=== PATIENT | female | born 1990 | race Hispanic/Latino ===

== ENCOUNTER 2021-03-06 19:39 | Emergency (ER) | payer MEDICAID ==
[2021-03-06 20:59] LABS: Urine Blood 2+ (Negative); Urine Glucose Negative (Negative); Urine Protein Negative (Negative); Urine pH 5.5 (5.0-7.0)
[2021-03-06 21:06] LABS: Basophils % 0.4 % (0-1.3); Hematocrit 37.9 % (36.0-45.0); Lymphocytes % 17.4 % (15.3-44.8); MPV 7.6 fL (7.6-11.3); RBC Red Blood Cell Count 4.46 M/uL (3.86-4.86)
[2021-03-06 21:37] LABS: BUN Blood Urea Nitrogen 8 mg/dL (7-18); Bicarbonate 25 mmol/L (21-32); Glucose Level 82 mg/dL (74-106); HCG, Quantitative 22084 mIU/mL (1-3); Potassium 3.6 mmol/L (3.5-5.1); Sodium Level 139 mmol/L (136-145)
--- NOTE | 2021-03-06 22:58 | ER ---
Nurse's Notes [facility] Name: Mayi Serrano Age: 30 yrs Sex: Female : 1990 Arrival Date: 03/06/2021 Time: 19:42 Bed 18 Private MD: Diagnosis: Threatened Presentation: 03/06 20:03 Chief complaint: Patient states: Noticed vaginal bleeding today about 3 hours ago, vg1 states is 13 WEEKS . Stated lower ABD pain and Lower Back pain. Denies NVD. Coronavirus screen: Client denies travel out of the [place] in the last 14 days. Ebola Screen: Patient negative for fever greater than or equal to 101.5 degrees Fahrenheit, and additional compatible Ebola Virus Disease symptoms. Initial Sepsis Screen: Does the patient meet any 2 criteria? No. Patient's initial sepsis screen is negative. Does the patient have a suspected source of infection? No. Patient's initial sepsis screen is negative. Risk Assessment: Do you want to hurt yourself or someone else? Patient reports no desire to harm self or others. Onset of symptoms was March 06, 2021. 20:03 Method Of Arrival: Ambulatory 1 20:03 Acuity: KYLE 3 vg1 Triage Assessment: 20:06 General: Appears in no apparent distress. comfortable, Behavior is calm, cooperative. vg1 Pain: Complains of pain in pelvis and lower back Pain currently is 9 out of 10 on a pain scale. Respiratory: Airway is patent Respiratory effort is even, unlabored. 23:07 Injury Description:. 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 - Social history:: Smoking status: Patient denies any tobacco usage or history of. Screenin:23 Abuse screen: Denies threats or abuse. Denies injuries from another. Nutritional ad5 screening: No deficits noted. Tuberculosis screening: No symptoms or risk factors identified. Fall Risk None identified. Assessment: 21:01 General: Appears in no apparent distress. Behavior is calm, cooperative, appropriate ad5 for age. Neuro: No deficits noted. Level of Consciousness is awake, alert, obeys commands, Oriented to person, place, time, situation, Appropriate for age. Cardiovascular: No deficits noted. Heart tones present Capillary refill < 3 seconds JVD is absent Patient's skin is warm and dry. Pulses are all present. Rhythm is regular. Respiratory: No deficits noted. Airway is patent Trachea midline Respiratory effort is even, unlabored, Respiratory pattern is regular, symmetrical, Breath sounds are clear bilaterally. GI: Abdomen is flat, Bowel sounds present X 4 quads. Reports lower abdominal pain, vaginal bleeding with lower abd and back pain that began this pm; est 13 weeks gestation, . GI: Reports. : No deficits noted. Reports vaginal bleeding that is moderate flow. Derm: Skin is pink, warm \T\ dry. Musculoskeletal: No deficits noted. 22:21 Reassessment: Patient appears in no apparent distress at this time. No changes from ad5 previously documented assessment. Patient and/or family updated on plan of care and expected duration. Pain level reassessed. Patient is alert, oriented x 3, equal unlabored respirations, skin warm/dry/pink. 22:58 Reassessment: Patient appears in no apparent distress at this time. Patient and/or ad5 family updated on plan of care and expected duration. Pain level reassessed. Patient is alert, oriented x 3, equal unlabored respirations, skin warm/dry/pink. Vital Signs: 20:03 BP 104 / 59; Pulse 73; Resp 16; Temp 97.6; Pulse Ox 100% ; Weight 68.04 kg; Height 5 vg1 ft. 6 in. (167.64 cm); Pain 9/10; 21:04 BP 107 / 63; Pulse 78; Resp 16 S; Pulse Ox 100% on R/A; ad5 22:21 BP 103 / 66; Pulse 92; Resp 18 S; Pulse Ox 100% on R/A; ad5 22:59 BP 106 / 62; Pulse 74; Resp 17 S; Pulse Ox 98% on R/A; ad5 20:03 Body Mass Index 24.21 (68.04 kg, 167.64 cm) vg1 ED Course: 19:42 Patient arrived in ED. cf2 20:05 Triage completed. vg1 20:06 Arm band placed on. vg1 20:33 Farhad Celeste MD is Attending Physician. tw4 20:45 Jonnathan Dinh is Primary Nurse. ad5 21:01 Patient has correct armband on for positive identification. Placed in gown. Bed in low ad5 position. Call light in reach. Side rails up X 1. Adult w/ patient. Pulse ox on. NIBP on. Door closed. Noise minimized. Warm blanket given. 21:01 No provider procedures requiring assistance completed. Initial lab(s) drawn, by oh, ad5 sent to lab. Inserted saline lock: 20 gauge in right antecubital area, using aseptic technique. Blood collected. 21:05 Inserted saline lock: 20 gauge in left forearm, using aseptic technique. ad5 22:22 US OB Limited Sent. ad5 22:44 US OB Limited In Process Unspecified. EDMS 23:08 IV discontinued, intact, bleeding controlled, No redness/swelling at site. Pressure ad5 dressing applied. Administered Medications: No medications were administered Outcome: 22:58 Discharge ordered by . tw4 23:08 Discharged to home ambulatory, with family. ad5 23:08 Condition: stable 23:08 Discharge instructions given to patient, family, Instructed on discharge instructions, follow up and referral plans. Demonstrated understanding of instructions, follow-up care. 23:35 Patient left the ED. ad5 Signatures: Dispatcher [employer] EDMS Farhad Celeste MD MD tw4 Hardik Barton cf2 Shea Adams, RN RN vg1 Jonnathan Dinh ad5
--- NOTE | 2021-03-06 22:58 | EDPHYS ---
Physician Documentation [facility] Name: Mayi Serrano Age: 30 yrs Sex: Female : 1990 Arrival Date: 03/06/2021 Time: 19:42 Bed 18 Private MD: ED Physician Farhad Celeste HPI: 03/06 23:35 This 30 yrs old Female presents to ER via Ambulatory with complaints of Leg tw4 Pain, Back Pain, Abdominal pain, Vaginal Bleeding. 23:35 The patient presents with flank pain, vaginal bleeding that is. Onset: The tw4 symptoms/episode began/occurred just prior to arrival. Modifying factors: The symptoms are alleviated by nothing, the symptoms are aggravated by nothing. Associated signs and symptoms: The patient has no apparent associated signs or symptoms. Severity of symptoms: At their worst the symptoms were moderate, in the emergency department the symptoms are unchanged. The patient has not experienced similar symptoms in the past. 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 - Social history:: Smoking status: Patient denies any tobacco usage or history of. ROS: 23:35 Positive for vaginal bleeding. tw4 23:35 Constitutional: Negative for fever, chills, and weight loss, Eyes: Negative for injury, pain, redness, and discharge, Cardiovascular: Negative for chest pain, palpitations, and edema, Respiratory: Negative for shortness of breath, cough, wheezing, and pleuritic chest pain, Abdomen/GI: Negative for abdominal pain, nausea, vomiting, diarrhea, and constipation, Back: Negative for injury and pain. 23:35 Skin: Negative for injury, rash, and discoloration, Neuro: Negative for headache, weakness, numbness, tingling, and seizure, Psych: Negative for depression, anxiety, suicide ideation, homicidal ideation, and hallucinations. 23:35 : Positive for vaginal bleeding. Exam: 23:35 Constitutional: This is a well developed, well nourished patient who is awake, alert, tw4 and in no acute distress. Head/Face: Normocephalic, atraumatic. Chest/axilla: Normal chest wall appearance and motion. Nontender with no deformity. No lesions are appreciated. Cardiovascular: Regular rate and rhythm with a normal S1 and S2. No gallops, murmurs, or rubs. Normal PMI, no JVD. No pulse deficits. Respiratory: Lungs have equal breath sounds bilaterally, clear to auscultation and percussion. No rales, rhonchi or wheezes noted. No increased work of breathing, no retractions or nasal flaring. Abdomen/GI: Soft, non-tender, with normal bowel sounds. No distension or tympany. No guarding or rebound. No evidence of tenderness throughout. Back: No spinal tenderness. No costovertebral tenderness. Full range of motion. Skin: Warm, dry with normal turgor. Normal color with no rashes, no lesions, and no evidence of cellulitis. MS/ Extremity: Pulses equal, no cyanosis. Neurovascular intact. Full, normal range of motion. Neuro: Awake and alert, GCS 15, oriented to person, place, time, and situation. Cranial nerves II-XII grossly intact. Motor strength 5/5 in all extremities. Sensory grossly intact. Cerebellar exam normal. Normal gait. 23:35 : Pelvic Exam: the exam is deferred. tw4 Vital Signs: 20:03 BP 104 / 59; Pulse 73; Resp 16; Temp 97.6; Pulse Ox 100% ; Weight 68.04 kg; Height 5 vg1 ft. 6 in. (167.64 cm); Pain 9/10; 21:04 BP 107 / 63; Pulse 78; Resp 16 S; Pulse Ox 100% on R/A; ad5 22:21 BP 103 / 66; Pulse 92; Resp 18 S; Pulse Ox 100% on R/A; ad5 22:59 BP 106 / 62; Pulse 74; Resp 17 S; Pulse Ox 98% on R/A; ad5 20:03 Body Mass Index 24.21 (68.04 kg, 167.64 cm) vg1 MDM: 20:33 Patient medically screened. tw4 23:35 Data reviewed: vital signs, nurses notes. Data interpreted: Pulse oximetry: tw4 Interpretation: normal. Special discussion: I discussed with the patient/guardian in detail that at this point there is no indication for admission to the hospital. It is understood, however, that if the symptoms persist or worsen the patient needs to return immediately for re-evaluation. 03/06 20:34 Order name: Quantitative Hcg [facility] 03/06 20:34 Order name: Abo/rh Typing [facility] 03/06 20:34 Order name: Basic Metabolic Panel [facility] 03/06 20:34 Order name: CBC with Diff [facility] 03/06 20:58 Order name: Urine --Ancillary (enter results) [facility] 03/06 20:59 Order name: Urine Dipstick-Ancillary [facility] 03/06 20:34 Order name: Urine Test (obtain specimen); Complete Time: 20:[address] [facility] 03/06 20:34 Order name: IV Saline Lock; Complete Time: 21:[address] [facility] 03/06 20:34 Order name: Labs collected and sent; Complete Time: 21:[address] [facility] 03/06 20:34 Order name: NPO; Complete Time: 21:[address] [facility] 03/06 20:34 Order name: Urine Dipstick-Ancillary (obtain specimen); Complete Time: 20:[address] [facility] 03/06 20:34 Order name: US OB Limited tw4 Administered Medications: No medications were administered Disposition: 03/06/21 22:58 Discharged to Home. Impression: Threatened . - Condition is Stable. - Discharge Instructions: Threatened Miscarriage, Vaginal Bleeding During , First Trimester. - Medication Reconciliation Form, Thank You Letter, Antibiotic Education, Prescription Opioid Use form. - Follow up: Private Physician; When: Upon discharge from the Emergency Department; Reason: Recheck today's complaints, Continuance of care, Re-evaluation by your physician. - Problem is new. - Symptoms have improved. Signatures: Dispatcher [employer] [facility] Farhad Celeste MD MD tw4 Shea Adams, RN RN vg1 Jonnathan Dinh ad5 Corrections: (The following items were deleted from the chart) 23:35 22:58 03/06/2021 22:58 Discharged to Home. Impression: Threatened . Condition ad5 is Stable. Forms are Medication Reconciliation Form, Thank You Letter, Antibiotic Education, Prescription Opioid Use. Follow up: Private Physician; When: Upon discharge from the Emergency Department; Reason: Recheck today's complaints, Continuance of care, Re-evaluation by your physician. Problem is new. Symptoms have improved. tw4
[2021-03-06 23:47] VITALS: TEMP 97.6
[2021-03-06 23:52] VITALS: BP 106/62; O2SAT 98
--- NOTE | 2021-03-07 07:59 | RAD REPORT ---
EXAM DESCRIPTION: US - OB Limited - 03/06/2021 10:44 pm CLINICAL HISTORY: with pelvic pain COMPARISON: None FINDINGS: Limited examination performed to assess for potential ectopic . Single live intrauterine is in variable presentation. pole 7.[address] nta is anterior. Amniotic fluid normal. Cardiac activity 147 beats per minute. The cervix is closed and measures 5 centimeters. The right and left adnexa unremarkable. No significant free fluid IMPRESSION: Single live intra with an estimated gestational age 13 weeks 4 days TACHO 2020 If a survey is desired it should be performed in approximately 5 weeks
== END 2021-03-06 23:35 | disposition home or self-care (01) ==
LOC: ER 19:39
DX: O20.0 Threatened abortion (principal); Z3A.13 13 weeks gestation of pregnancy
CPT/HCPCS: 36415; 76815; 80048; 81003; 81025; 84702; 85025; 86900; 86901; 99284